=== PATIENT | female | born 1990 | race African-American/Black ===

== ENCOUNTER 2017-04-25 20:17 | Observation (INO) | payer OTHER ==
[2017-04-25] MEDS ORDERED: NS 1,000 ML IV ONE (20:52)
[2017-04-25] MEDS ORDERED: LORazepam 2 MG/ML INJ ONE (20:59)
[2017-04-25] MEDS ORDERED: LORazepam 2 MG/ML INJ IVP ONE ×2 (21:00→22:09)
--- NOTE | 2017-04-25 21:04 | CPEKG ---
Heart Rate: 90 RR Interval: 667 P-R Interval: 136 QRSD Interval: 82 QT Interval: 340 QTC Interval: 416 P Andover: 74 QRS [place]over: 78 T Wave Andover: 18 EKG Severity - NORMAL ECG - EKG Impression: SINUS RHYTHM Electronically Signed By: Elisabeth Meeks 26-Apr-2017 15:49:10
[2017-04-25 21:16] LABS: % IMMATURE GRANULYOCYTES 0.1 % (0.0-1.1); ABSOLUTE IMMATURE GRANULOCYTES 0.01 10^3/uL (0.00-0.10); ADD DIFF? NO; ADD MORPH? NO; ADD SCAN? NO; ATYPICAL LYMPHOCYTE FLAG 20 (0-99); FRAGMENT RBC FLAG 0 (0-99); HEMATOCRIT 37.8 % (38.0-47.0); HEMOGLOBIN 12.9 g/dL (12.6-16.3); LEFT SHIFT FLG 0 (0-99); LIPEMIA HEMOLYSIS FLAG 90 (0-99); MEAN CELL HEMOGLOBIN 29.9 pg (27.9-34.1); MEAN CELL HEMOGLOBIN CONCENTR. 34.1 g/dL (32.4-36.7); MEAN CELL VOLUME 87.7 fL (81.5-99.8); MEAN PLATELET VOLUME 12.9 fL (8.7-11.7); PLATELET CLUMPS FLAG 0 (0-99); PLATELET COUNT 211 10^3/uL (150-400); RED BLOOD CELL COUNT 4.31 10^6/uL (4.18-5.33); RED CELL DISTRIBUTION WIDTH 12.8 % (11.5-15.2)
[2017-04-25 21:22] LABS: ANION GAP 15 mEq/L (8-16); CARBON DIOXIDE 21 mEq/l (22-31); CHLORIDE 105 mEq/L (97-110); CREATININE 0.8 mg/dL (0.6-1.0); GLOMERULAR FILTRATION RATE > 60; GLUCOSE 117 mg/dL (70-100); POTASSIUM 3.8 mEq/L (3.5-5.2); SODIUM 141 mEq/L (134-144)
[2017-04-25 21:34] LABS: TROPONIN I < 0.012 ng/mL (0.000-0.034)
--- NOTE | 2017-04-25 21:38 | EDPHY ---
H & P Stated Complaint: Ingested marijuana Source: Family Exam Limitations: Clinical condition - Personal History LMP (Females 10-55): Unknown Current Tetanus/Diphtheria Vaccine: Unsure Current Tetanus Diphtheria and Acellular Pertussis (TDAP): Unsure - Medical/Surgical History Hx Asthma: No Hx Chronic Respiratory Disease: No Hx Diabetes: No Hx Cardiac Disease: No Hx Renal Disease: No Hx Cirrhosis: No Hx Alcoholism: No Hx HIV/AIDS: No Hx Splenectomy or Spleen Trauma: No Other PMH: childhood seizures - Social History Smoking Status: Never smoked HPI/ROS: CHIEF COMPLAINT: Marijuana ingestion, adverse reaction HISTORY OF PRESENT ILLNESS: Patient presents by EMS with reports of ingestion of marijuana. Her friends at bedside said they took 10 mg of marijuana by mouth at 3:00 p.m.. Friend said that she was fine, laughing having fine until 2 -3 hours later. At that time she began to feel very anxious and agitated. She told him something was wrong. They do not describe any seizure-like activity. He said that they were worried that she was just anxious and having a bad reaction, as this was the 1st time she ever ingested marijuana. EMS reportedly administered 1 mg of Versed IV prior to arrival. She is very somnolent during my examination. She will open her eyes minimally. She will not provide any history herself due to the somnolence. 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 No current medications per friends PAST SURGICAL HISTORY: Unknown SOCIAL HISTORY: Unknown FAMILY HISTORY: Unknown EXAMINATION General Appearance: Somnolent. No acute distress. No outward signs of trauma Head: normocephalic, atraumatic Eyes: Pupils equal and round, no conjunctival pallor or injection ENT, Mouth: Mucous membranes moist. Airway patent. Gag reflex intact. Neck: Normal inspection, supple, non-tender Respiratory: Lungs are clear to auscultation no wheezing, rhonchi or crackles Cardiovascular: Regular rate and rhythm. No murmur. Gastrointestinal: Abdomen is soft and nontender Back: non-tender, no bony abnormalities Neurological: Difficult to arouse with other than physical stimuli. Skin: Warm and dry, no rash Extremities: Nontender, no pedal edema. Spontaneous movement of all 4 extremities is minimal. There are fascicular movements of all 4 extremities. DIFFERENTIAL DIAGNOSES: Including but not limited to seizure, adverse drug reaction, marijuana intoxication, marijuana overdose MDM: 8:50 p.m. Reports of marijuana ingestion with subsequent anxiety reaction. I have suspicion for seizure as she is difficult to arouse and showing muscular tremors. I immediately consulted Dr. Tapia. She has evaluated the patient she agrees. We are ordering Ativan and continue with seizure workup. 9:30 p.m. Patient has been evaluated by Dr. Tapia. We are in agreement that this is possibly seizure. Laboratory studies been ordered. She is protecting her airway without intervention. Vital signs remained stable. 10:00 p.m. Prolactin is elevated at 52. Suggest patient might have had a seizure. This is consistent with her apparent postictal state. She is currently awake in urinating. 10:10 p.m. Patient re-evaluated. She still appears to be having seizure-like activity versus is significant somnolence from postictal state. Dr. Tapia to re- evaluate 10:30 Case discussed with radiologist Dr. Brito. CT scan reveals no acute findings. 10:55 p.m. Re-evaluated patient again. Patient remains very somnolent and apparently postictal. No seizure-like activity after 2nd dose of Ativan. She is not awake enough to have full conversation. She is answering some questions intermittently. She is opening her eyes occasionally. Do not feel that she is stable for discharge home as she is too somnolent postictal. I do not feel that she is in status epilepticus at this time. Nor does Dr. Tapia. Proceed with admission to the hospital for observation for postictal state. 11:10 p.m. Case discussed with hospitalist Dr. Luz Marina Hebert. She has admitted the patient to her service. Admitted to an Step-Down Unit bed. She is admitted in stable condition. No evidence of status epilepticus at this time. Keppra has been ordered and pending (Toy Weaver) Constitutional: Initial Vital Signs Temperature (C) 37.8 C 04/25/17 20:17 Heart Rate 113 H 04/25/17 20:17 Respiratory Rate 16 04/25/17 20:17 Blood Pressure 134/95 H 04/25/17 20:17 O2 Sat (%) 99 04/25/17 20:17 O2 Delivery Mode Room Air Allergies/Adverse Reactions: No Known Allergies Allergy (Verified 04/25/17 20:34) Home Medications: Medication Instructions Recorded NK [No Known Home Meds] 04/25/17 Medical Decision Making Other Provider: I have evaluated and participated in the management of this patient. My co- signature indicates that I have reviewed this chart and that I agree with the findings and the plan of care as documented. My personal history and physical findings include: This is a 26-year-old female with a history of grand mal seizure at age 8 with no seizures for many many years. She presents tonight by ambulance after having a witnessed seizure. This occurred a few hours after she consumed edible marijuana. I was asked to see her because she was difficult to arouse. At the time of my initial evaluation she had rhythmic movements of her head and conjugate gaze deviation. She could not be aroused. She was protecting her airway. She was given Ativan. Head movements ceased. On repeat examination she was arousable with vigorous stimulation. However, she had another episode with rhythmic head movements and received a 2nd dose of Ativan. At that point there was concern for status epilepticus but on reexamination she was again arousable, protecting her airway, and appropriately stated that she needed to use the bathroom. Head CT was negative/normal. Prolactin level elevated. It is my impression that she is having seizures. IV Keppra was given. She is being admitted to the hospital for continued observation and neurologic consultation. (Imelda Tapia) - Data Points Laboratory Results: Laboratory Results 04/25/17 20:45 04/25/17 20:45 Medications Given: Sodium Chloride (Ns) 1,000 mls @ 125 mls/hr IV CONT BROWN Stop: 10/23/17 01:14 Last Admin: 04/26/17 10:52 Dose: 1,000 mls Levetiracetam (Keppra) 500 mg PO BID BROWN Stop: 10/23/17 20:59 Last Admin: 04/26/17 21:46 Dose: 500 mg Lorazepam (Ativan Injection) 1 - 2 mg IVP Q4HRS PRN PRN Reason: Anxiety, Unable to Take PO Stop: 10/23/17 05:41 Last Admin: 04/26/17 06:12 Dose: 2 mg Discontinued Medications Sodium Chloride (Ns) 1,000 mls @ 0 mls/hr IV ONCE ONE; Wide Open PRN Reason: Protocol Stop: 04/25/17 20:53 Last Admin: 04/25/17 21:06 Dose: 1,000 mls Levetiracetam 500 mg/ Sodium (Chloride) 105 mls @ 420 mls/hr IV EDNOW ONE Stop: 04/25/17 22:49 Last Admin: 04/25/17 23:05 Dose: 105 mls Levetiracetam 500 mg/ Sodium (Chloride) 105 mls @ 420 mls/hr IV BID BROWN Stop: 10/23/17 08:59 Last Admin: 04/26/17 08:04 Dose: 105 mls Levetiracetam 1,000 mg/ Sodium (Chloride) 110 mls @ 440 mls/hr IV ONCE ONE Stop: 04/26/17 06:46 Last Admin: 04/26/17 06:57 Dose: Not Given Lorazepam (Ativan Injection) 1 mg IVP EDNOW ONE Stop: 04/25/17 21:01 Last Admin: 04/25/17 21:03 Dose: 1 mg Lorazepam (Ativan Injection) 1 mg IVP EDNOW ONE Stop: 04/25/17 22:10 Last Admin: 04/25/17 22:12 Dose: 1 mg Departure - Departure Disposition: [facility] Acute Clinical Impression: Post-ictal state, Recurrent seizures Condition: Good
[2017-04-25 21:39] LABS: PROLACTIN 51.6 ng/mL (3.0-18.6)
[2017-04-25] MEDS ORDERED: levETIRAcetam 500 MG in NS 100 ML IV ONE (22:35)
[2017-04-26] MEDS ORDERED: ONDANSETRON DISINTEGRATING 4 MG TAB PO PRN (00:49)
[2017-04-26] MEDS ORDERED: ACETAMINOPHEN 325 MG TAB PO PRN (00:49)
[2017-04-26] MEDS ORDERED: ONDANSETRON 4 MG/2 ML VIAL IVP PRN (00:49)
--- NOTE | 2017-04-26 01:49 | GHP ---
[f rep st] HISTORY AND PHYSICAL DATE OF ADMISSION: 04/25/2017 HISTORY OF PRESENT ILLNESS: Patient is a 26-year-old female with a history of grand mal seizures at age 8, who was brought in by EMS after ingesting a gummy edible and seizure-like activity. This history is obtained from her friends who were with her, as well as her sister who was on the phone. The patient was visiting friends from [place]. They took a gummy at 3 p.m., and she was feeling funny, and they were laughing. Two to three hours later, she felt anxious and agitated, and said something was wrong. Her friend said she had shaking of her arms, legs, and head, and called 9-1-1. In the emergency room, she had 2 more seizure-like episodes. Per sister, she had grand mal seizures as a child, but the last one was when she was 8 years old. Friends deny any alcohol or other drugs taken tonight. REVIEW OF SYSTEMS: Per sister, as patient is somnolent after Ativan. PAST MEDICAL HISTORY: Grand mal seizures at age 8 PAST SURGICAL HISTORY: Hernia surgery. 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 No do not know of drug use. Has occasional alcohol. No tobacco. FAMILY HISTORY: Diabetes, hypertension, cancer. MEDICATIONS: None. ALLERGIES: None. PHYSICAL EXAMINATION: VITAL SIGNS: Temperature 36.5, blood pressure 121/82, heart rate 80s, respirations 18, 97% on room air. GENERAL: Patient is somnolent. Minimal arousal with sternal rub. HEENT: PERRLA. Pinpoint pupils , but reactive. HEART: Regular rate and rhythm. No murmurs, gallops, rubs. LUNGS: Clear to auscultation bilaterally. ABDOMEN: Soft, nontender, nondistended. MUSCULOSKELETAL: Not participating due to somnolence. NEUROLOGIC: Not participating. Will minimally open eyes to sternal rub. PSYCHIATRIC: Not verbal at this point, after Ativan. LABORATORY DATA: WBC 7.39, hemoglobin 12, hematocrit 37, platelets 211. Sodium 141, potassium 3.8, chloride 105, carbon dioxide 21, creatinine 0.8, glucose 117, calcium 10. Troponin less than 0.012. Prolactin 51. Negative . U-tox positive for marijuana. CT head, personally reviewed: No hemorrhage or ischemia. EKG, personally reviewed by me: Sinus rhythm, probable LVH. ASSESSMENT AND PLAN: 1. Seizure: h/o of seizures as child. Perhaps due to edible THC ingestion. Dosed Ativan in the emergency room. Keppra 500 mg b.i.d. Neurology to evaluate in the morning. CT head was negative. Friends deny any other ingestions. 2. Marijuana use. 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 3. Diet: N.P.O. until mental status clears. DISPOSITION: Patient warrants observation admission given acute seizure warranting frequent neuro checks and Keppra. Critical care time spent: 50 min examining pt, speaking with her friends/sisters , and reassessing for recurrent seizures in ICU /[id number]/MODL MTDD
[2017-04-26 01:50] LABS: COLOR PALE YELLOW; LEUKOCYTE ESTERASE,URINE TRACE (NEGATIVE); NITRITE,URINE NEGATIVE (NEGATIVE)
[2017-04-26 01:53] LABS: RBC,URINE NONE SEEN /hpf (0-3)
[2017-04-26] MEDS ORDERED: LORazepam 2 MG/ML INJ IVP PRN (05:42)
[2017-04-26] MEDS ORDERED: LORazepam 2 MG/ML INJ ONE (05:46)
[2017-04-26] MEDS ORDERED: levETIRAcetam 1,000 MG in NS 100 ML IV ONE (06:32)
[2017-04-26 06:47] LABS: ANION GAP 9 mEq/L (8-16); CALCIUM 8.4 mg/dL (8.5-10.4); CARBON DIOXIDE 21 mEq/l (22-31); CHLORIDE 112 mEq/L (97-110); CREATININE 0.6 mg/dL (0.6-1.0); GLOMERULAR FILTRATION RATE > 60; GLUCOSE 76 mg/dL (70-100); POTASSIUM 3.5 mEq/L (3.5-5.2); SODIUM 142 mEq/L (134-144)
[2017-04-26] MEDS: NS 1,000 ML IV SCH ×2 (07:06→10:52)
[2017-04-26] MEDS ORDERED: levETIRAcetam 500 MG TAB PO SCH (09:00)
[2017-04-26] MEDS ORDERED: levETIRAcetam 500 MG in NS 100 ML IV SCH (09:00)
--- NOTE | 2017-04-26 14:07 | HOSPPROG ---
Hospitalist Progress Note Assessment/Plan: # seizure - started on keppra - seizure precautions - f/u Dr Boucher # somnolence - possibly post-ictal, possibly d/t ativan - close monitoring # dispo - not stable for dc until more awake/alert Objective: Vital Signs Temp Pulse Resp BP Pulse Ox 36.8 C 81 14 113/78 98 04/26/17 12:00 04/26/17 12:00 04/26/17 12:00 04/26/17 12:00 04/26/17 12:00 Laboratory Results 04/26/17 06:20 04/25/17 04/26/17 04/27/17 05:59 05:59 05:59 Intake Total 2539 Output Total 1250 Balance 1289 ICD10 Worksheet Patient Problems: Problems Problem Status Onset Post-ictal state Acute Recurrent seizures Acute
--- NOTE | 2017-04-26 14:18 | NEUROPROG ---
Assessment: [id number] CC: Dr. Magali Hebert consulted neurology for seizure. Results of this evaluation were placed in the EMR for her review. HPI: Pt presented to [facility] ER on 04/25/17 after using an edible marijuana product and then having 3 episodes of whole body shaking concerning for seizure. She had seizures as a child (last at [address] yo). [address] unremarkable. Pt admitted for observation. I saw the patient 04/26/17 and confirmed the above history. She had another shaking event at 6 am so received ativan and is now very somnolent but otherwise has no focal neurologic deficits. PMHx: seizure age 8 yo, Home Meds: none SHx: no tobacco or significant drug use FHx: DM, HTN, cancer ROS: Pt cannot answer O: VS reviewed Pt is very drowsy so cannot perform full neurologic exam. Ox3, able to move all 4 extrem in command, feels all 4 extrem, PERRL, reflexes normal Labs: 04/25/17- CBC Hct 37.8L, CHem CO2 21L GLuc 117H, Prolactin 51.6H, HCG neg 04/26/17- TSH wnl Rads: 04/25/17- Head CT: no acute changes (I personally visualized the images on ) Assessment: 1. Generalized Seizure: Normal neurologic exam 04/26/[address] History of childhood seizures so likely has a generalized seizure disorder provoked by marijuana edible use. Plan: - Recommend avoiding marijuana, alcohol, and all drugs - Agree with Keppra 500 mg bid (given multiple life-time seizures) - No driving and seizure precautions until she establishes with a neurologist in [place] - F/U in 4-6 weeks with neurology (either with me in [place] or back home in [place]), obtain EEG at that time - Pt still too drowsy to discahrge, may need another day of recovery Neurology will continue to follow Objective: Vital Signs Temp Pulse Resp BP Pulse Ox 36.8 C 81 14 113/78 98 04/26/17 12:00 04/26/17 12:00 04/26/17 12:00 04/26/17 12:00 04/26/17 12:00 Laboratory Results 04/26/17 06:20 04/25/17 04/26/17 04/27/17 05:59 05:59 05:59 Intake Total 2539 Output Total 1250 Balance 1289 Allergies/Adverse Reactions: No Known Allergies Allergy (Verified 04/25/17 20:34)
--- NOTE | 2017-04-26 17:19 | ASMTCMCOM ---
CM Note CM Note Notes: 26yo female admitted after having a sz. Has a Hx of Grand Mal Sz until the age of 8. Patient injested edible marijuana before experiencing the sz. 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 Case Management doesn't anticipate patient having any discharge needs. Date Signed: 04/26/2017 05:18 PM Electronically Signed By:Brittany Puri LCSW
[2017-04-26] MEDS: levETIRAcetam 500 MG TAB PO SCH (21:46)
[2017-04-27 08:01] VITALS: BP 120/79; PULSE 82; RESP 15; TEMP 97.9; O2SAT 96
[2017-04-27] MEDS: levETIRAcetam 500 MG TAB PO SCH (08:36)
--- NOTE | 2017-04-27 09:38 | NEUROPROG ---
Assessment: Today's visit was spent primarily in counseling and coordination of care. 25 mins in direct patient care activities on the floor. Patient is back to her usual self today. She states she is visiting here from [place]. She had her first experience with cannabis while here in the form of an edible with 10mg THC. She states after ingestion, she felt anxious, disconnected, like she was in a dream. She felt trembling in her body, but never lost awareness. She states she only lost awareness when EMS arrived and she was given IV midazolam. Was apparently trembling in ED and not responsive, but got a dose of lorazepam in ED as well and had been somnolent through yesterday evening. 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 Given her description of events, I don't think she had a seizure. Elevated prolactin in the ED is nonspecific, and no leukocytosis or metabolic acidosis. She never lost awareness until she was given IV midazolam. I suspect her prolonged confusion/sedation was iatrogenic from the benzos. Advised against exposing herself to cannabinoids or any other intoxicants. Recommend she have followup with her PCP and neurology when she returns to [place]. Would exercise precautions as previously outlined by Dr. Boucher. She has a normal exam today. Objective: Vital Signs Temp Pulse Resp BP Pulse Ox 36.6 C 82 15 120/79 96 04/27/17 07:59 04/27/17 07:59 04/27/17 07:59 04/27/17 07:59 04/27/17 07:59 Laboratory Results 04/26/17 06:20 04/26/17 04/27/17 04/28/17 05:59 05:59 05:59 Intake Total 4649 1350 Output Total 1250 Balance 1289 1350 Allergies/Adverse Reactions: No Known Allergies Allergy (Verified 04/25/17 20:34)
--- NOTE | 2017-04-27 10:17 | GDS ---
[f rep st] DISCHARGE SUMMARY SERVICE: [facility] hospitalist. CONSULTS: Neurology, Dr. Boucher. PROCEDURES: Head CT on 04/25/2017 which was a normal noncontrasted study. HISTORY AND PHYSICAL: Please see previously dictated note by Dr. Hebert. ADMISSION DIAGNOSES: Seizure, marijuana use. DISCHARGE DIAGNOSES: Seizure, marijuana use. HOSPITAL COURSE BY PROBLEM LIST: 1. Seizure. The patient came into the emergency department after having a seizure following an edib le THC ingestion. She was given Ativan in the emergency department and loaded with Keppra. She had a head CT scan which was negative. Neurology, Dr. Boucher, was asked to consult and saw her on the day prior to discharge. She has a remote history of seizures as a child and Dr. Boucher recommended no alco hol or marijuana use, no driving for 4-6 weeks, continued Keppra and an outpatient followup for an EE G and re-evaluation. She is from [place], [place] and was here on vacation. She does not have a [facility] care provider in [place] so I have instructed her to set up a primary care provider immediately upon her return, and then can get a neurology referral. I have echoed Dr. Boucher's precautions for no marijuana, alcohol. She should ensure good hydration and sleep quality. I have reminded her that safia falk should not drive at all for at least 4-6 weeks or until cleared by Neurology at home. If at any ti me she has any concerns about further seizure activity, [facility]. She is planning to go home to [place] in the next day or 2. Of note, she is not cur rently on any sort of control. Her HCG was negative in the emergency department. I have sugge sted to her that she discuss control options with her primary care provider as she declines any control today. 2. Marijuana use. See above. I have strongly recommended that she not. DISCHARGE INSTRUCTIONS: Please see above. No marijuana, no alcohol, no other illicit drugs. Advise d to not drive for at least 4 to 6 weeks or until otherwise cleared by Neurology because of risk of r ecurrent seizure. I have instructed her to request a CD copy of her head CT and I have printed all r elevant paperwork so that she can bring this to her providers in [place]. DISCHARGE MEDICATION: Keppra 500 mg twice a day. She does not take any other chronic medications. /[id number]/MODL
--- NOTE | 2017-04-27 12:10 | ASMTCMCOM ---
CM Note CM Note Notes: Pt is medically stable for d/c, no CM d/c needs identified. Date Signed: 04/27/2017 12:10 PM Electronically Signed By:CHRISTINA Espinoza
--- NOTE | 2017-04-27 14:07 | ASDISCHSUM ---
Discharge Information Plan Status:Home with No Needs Medically Cleared to Leave: Discharge Date:04/27/2017 02:00 PM CM D/C Disposition:Home, Routine, Self-Care ADT D/C Disposition:Home, Routine, Self-Care Projected Discharge Date:04/27/2017 02:00 PM Transportation at D/C: Discharge Delay Reason: Follow-Up Date:04/27/2017 02:00 PM Discharge Slot: Final Diagnosis: Placement Information Patient Contact Information Contact Name:NPPT Relationship: Address: Home Phone: Work Phone: City: Alternate Phone: State/Zip Code: Email: Financial Information [facility] Primary Plan Desc:[employer] [facility] Primary Plan Number:[id number] Secondary Plan Desc: Secondary Plan Number: Assessment Information [facility] CM Progress Note CM Note CM Note Notes: 26yo female admitted after having a sz. Has a Hx of Grand Mal Sz until the age of 8. Patient injested edible marijuana before experiencing the sz. 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 Case Management doesn't anticipate patient having any discharge needs. Date Signed: 04/26/2017 05:18 PM Electronically Signed By:Brittany Puri LCSW [facility] CM Progress Note CM Note CM Note Notes: Pt is medically stable for d/c, no CM d/c needs identified. Date Signed: 04/27/2017 12:10 PM Electronically Signed By:CHRISTINA Espinoza Intervention Information
== END 2017-04-27 14:00 | disposition home or self-care (01) ==
LOC: INTOOBSV 23:07 → F2N 04-26 00:39 → F3N 04-26 14:49
PROVIDERS: ADMIT Internal Medicine; ATTEND Internal Medicine
DX: R56.9 Unspecified convulsions (principal); F12.988 Cannabis use, unspecified with other cannabis-induced disorder
CPT/HCPCS: 70450; 93005; 96361; 96365; 96375; 96376; 99285; G0378; 80305; J1953; J2060